=== PATIENT | female | born 1985 | race Asian ===

== ENCOUNTER 2020-11-12 13:09 | Emergency (ER) | payer OTHER, BC ==
[~2020-11-12] VITALS: Ht 149.9 cm; Wt 51.7 kg
[2020-11-13 08:10] LABS: HCV ANTIBODY <0.1 (0.0-0.9)
[2020-11-13 10:10] LABS: HIV SCREEN 4TH GENERATION WRFX Non Reactive (Non Reactive)
== END 2020-11-12 13:38 | disposition home or self-care (01) ==
LOC: ER 13:09
PROVIDERS: Physician Assistant
DX: Z77.21 Contact with and (suspected) exposure to potentially hazardous body fluids (principal)
CPT/HCPCS: 36415; 84460; 86317; 86703; 86803; 87340; 87389; 99283